=== PATIENT | female | born 1950 | race Caucasian/White ===

== ENCOUNTER 2017-02-28 17:54 | Emergency (ER) | payer OTHER, MEDICARE ==
--- NOTE | 2017-02-28 18:37 | EDPHY ---
H & P Time Seen by Provider: 02/28/17 18:11 HPI/ROS: CHIEF COMPLAINT: Sudden memory loss HISTORY OF PRESENT ILLNESS: Patient went to the eye doctor today at 11:00 a.m. and was with her daughter until 12:45 p.m. and was normal. At 3:30 a.m. the daughter spoke with the mother on the phone and she was confused with no good short-term memory. This persisted started getting better at around 4:30 p.m., and at the time I examine her she feels much better. This was not associated with vertigo or loss of balance or weakness or numbness in extremities or trouble with speech. REVIEW OF SYSTEMS: Eye: no change in vision ENT: no sore throat Cardiac: no chest pain or syncope Pulmonary: no cough or SOB Abdomen: no vomiting, diarrhea, abdominal pain. A little bit of nausea Musculoskeletal: no back pain or neck pain Skin: no rash Neuro: no headache Constitutional: no fever : no urinary symptoms, not incontinent A comprehensive 10 point review of systems is otherwise negative aside from elements mentioned in the history of present illness. PAST MEDICAL HISTORY: Eye surgery Social history: Here with her daughter, no alcohol General Appearance: Alert and conversant, cooperative. Eyes: No scleral icterus. ENT, Mouth: Normal mucous membranes. No tongue lac or abrasion. Respiratory: Normal respiratory effort, breath sounds equal, lungs are clear to auscultation. Cardiovascular: Regular rate and rhythm. Gastrointestinal: Abdomen is soft and non tender. Neurological: Alert and oriented x3. Normally conversant. Face symmetric, normal movement and sensation in all extremities. Negative Romberg. No pronator drift and normal [id number] bilaterally. Fluent speech. She knows her name and year and place of and her street address of the house she grew up in. Skin: Warm and dry, no rashes. Musculoskeletal: No peripheral edema and no joint swelling. Psychiatric: Not agitated. Emergency Department course/MDM: Probable transient global amnesia. Plan for CT, EKG, labs and Neurology consultation on the phone. Discussed with neurologist Dr. Camarillo recommends discharge with outpatient follow- up. 1942: CT per [facility] read as possible intraventricular hemorrhage near foramen of Garces, will consult Neurosurgery. 2016: CT personally reviewed by Dr. Alberts from Neurosurgery, his interpretation personally is that is not actually hemorrhage; patient would be stable for discharge then. Reviewed with the patient in the daughter. I think transient global ischemia is the most likely diagnosis. Smoking Status: Never smoked Constitutional: Initial Vital Signs Temperature (C) 36.7 C 02/28/17 17:55 Heart Rate 86 02/28/17 17:55 Respiratory Rate 16 02/28/17 17:55 Blood Pressure 130/89 H 02/28/17 17:55 O2 Sat (%) 96 02/28/17 17:55 O2 Delivery Mode Room Air Allergies/Adverse Reactions: Penicillins Allergy (Verified 02/28/17 17:58) as child Home Medications: Medication Instructions Recorded Estradiol [Estradiol 1 MG (*)] 1 mg PO 02/28/17 valACYclovir [Valtrex (*)] 500 mg PO 02/28/17 Medical Decision Making - Diagnostics EKG Interpretation: 12-lead EKG interpreted by me; official reading is in trace master. My interpretation is sinus rhythm rate 73 with late anterior RS transition and nonspecific inferior T-wave abnormalities. Imaging Results: Imaging Impressions Head CT 02/28/17 18:36 Impression: 1. Linear high attenuation in the region of the right foramen of Garces suggesting hemorrhage, without hydrocephalus. 2. Diffuse cerebral atrophy with periventricular and subcortical low attenuation consistent with chronic microvascular ischemic gliosis. Findings discussed with DIONICIO DAWSON 02/28/2017 at 19:39. Differential Diagnosis: Differential considered including but not limited to intracranial bleed or mass , ischemic stroke, transient global amnesia, seizure, metabolic. Consult/Admit Bed Type: [facility], [facility] 8 - Data Points Laboratory Results: Laboratory Results 02/28/17 18:35 02/28/17 18:35 02/28/17 02/28/17 18:35 18:35 WBC 6.29 10^3/uL 10^3/uL (3.80-9.50) RBC 4.49 10^6/uL 10^6/uL (4.18-5.33) Hgb 15.0 g/dL g/dL (12.6-16.3) Hct 44.3 % % (38.0-47.0) MCV 98.7 fL fL (81.5-99.8) MCH 33.4 pg pg (27.9-34.1) MCHC 33.9 g/dL g/dL (32.4-36.7) RDW 12.9 % % (11.5-15.2) Plt Count 228 10^3/uL 10^3/uL (150-400) MPV 10.7 fL fL (8.7-11.7) Neut % (Auto) 51.8 % % (39.3-74.2) Lymph % (Auto) 32.6 % % (15.0-45.0) Pettis % (Auto) 11.6 % % (4.5-13.0) Eos % (Auto) 2.2 % % (0.6-7.6) Baso % (Auto) 1.6 % % (0.3-1.7) Nucleat RBC Rel Count 0.0 % % (0.0-0.2) Absolute Neuts (auto) 3.26 10^3/uL 10^3/uL (1.70-6.50) Absolute Lymphs (auto) 2.05 10^3/uL 10^3/uL (1.00-3.00) Absolute Monos (auto) 0.73 10^3/uL 10^3/uL (0.30-0.80) Absolute Eos (auto) 0.14 10^3/uL 10^3/uL (0.03-0.40) Absolute Basos (auto) 0.10 10^3/uL 10^3/uL (0.02-0.10) Absolute Nucleated RBC 0.00 10^3/uL 10^3/uL (0-0.01) Immature Gran % 0.2 % % (0.0-1.1) Immature Gran # 0.01 10^3/uL 10^3/uL (0.00-0.10) Sodium 140 mEq/L mEq/L (134-144) Potassium 4.3 mEq/L mEq/L (3.5-5.2) Chloride 104 mEq/L mEq/L (97-110) Carbon Dioxide 23 mEq/l mEq/l (22-31) Anion Gap 13 mEq/L mEq/L (8-16) BUN 18 mg/dL mg/dL (7-23) Creatinine 0.7 mg/dL mg/dL (0.6-1.0) Estimated GFR > 60 Glucose 85 mg/dL mg/dL (70-100) Calcium 9.8 mg/dL mg/dL (8.5-10.4) Troponin I < 0.012 ng/mL ng/mL (0.000-0.034) Departure - Departure Disposition: Home, Routine, Self-Care Clinical Impression: Transient global amnesia Condition: Good Instructions: Transient Global Amnesia (ED) Referrals: Kelsi Mueller PA [Primary Care Provider] - As per Instructions Drew Camarillo MD [Medical Doctor] - As per Instructions (Please follow-up with Neurology next week.)
[2017-02-28 18:53] LABS: % IMMATURE GRANULYOCYTES 0.2 % (0.0-1.1); ABSOLUTE IMMATURE GRANULOCYTES 0.01 10^3/uL (0.00-0.10); ADD DIFF? NO; ADD MORPH? NO; ADD SCAN? NO; ATYPICAL LYMPHOCYTE FLAG 30 (0-99); FRAGMENT RBC FLAG 0 (0-99); HEMATOCRIT 44.3 % (38.0-47.0); LEFT SHIFT FLG 0 (0-99); LIPEMIA HEMOLYSIS FLAG 90 (0-99); MEAN CELL HEMOGLOBIN 33.4 pg (27.9-34.1); MEAN CELL HEMOGLOBIN CONCENTR. 33.9 g/dL (32.4-36.7); MEAN CELL VOLUME 98.7 fL (81.5-99.8); MEAN PLATELET VOLUME 10.7 fL (8.7-11.7); PLATELET CLUMPS FLAG 0 (0-99); PLATELET COUNT 228 10^3/uL (150-400); RED BLOOD CELL COUNT 4.49 10^6/uL (4.18-5.33); RED CELL DISTRIBUTION WIDTH 12.9 % (11.5-15.2)
--- NOTE | 2017-02-28 18:56 | CPEKG ---
Heart Rate: 73 RR Interval: 822 P-R Interval: 144 QRSD Interval: 78 QT Interval: 392 QTC Interval: 432 P [place]: 43 QRS [place]: -13 T Wave [place]: -3 EKG Severity - BORDERLINE ECG - EKG Impression: SINUS RHYTHM EKG Impression: BORDERLINE T ABNORMALITIES, INFERIOR LEADS Electronically Signed By: Willian Allison 28-Feb-2017 19:09:26
[2017-02-28 19:06] LABS: ANION GAP 13 mEq/L (8-16); CALCIUM 9.8 mg/dL (8.5-10.4); CARBON DIOXIDE 23 mEq/l (22-31); CHLORIDE 104 mEq/L (97-110); CREATININE 0.7 mg/dL (0.6-1.0); GLOMERULAR FILTRATION RATE > 60; GLUCOSE 85 mg/dL (70-100); POTASSIUM 4.3 mEq/L (3.5-5.2); SODIUM 140 mEq/L (134-144)
[2017-02-28 19:17] LABS: TROPONIN I < 0.012 ng/mL (0.000-0.034)
[2017-02-28 20:25] VITALS: BP 123/87; PULSE 71; RESP 18; TEMP 97.9; O2SAT 95
== END 2017-02-28 20:34 | disposition home or self-care (01) ==
DX: G45.4 Transient global amnesia (principal)

== ENCOUNTER → 2017-03-02 | Outpatient (CLI) | payer OTHER, MEDICARE | LOC: BMCIMAGING 12:51 | PROVIDERS: ATTEND Physician Assistant Medical | DX: G45.4 Transient global amnesia (principal) ==

== ENCOUNTER → 2017-03-28 | Outpatient (CLI) | payer OTHER, MEDICARE ==
--- NOTE | 2017-03-28 23:27 | CPEEG ---
[f rep st] ELECTROENCEPHALOGRAM EXTENDED GREATER THAN 1 HOUR EEG DATE OF STUDY: INTERPRETATION: This extended EEG is normal. There were no potentially epileptogenic abnormalities present during the awake or sleep recordings. REPORT: This extended EEG contains 9 Hz alpha activity of the posterior head regions. There was no abnormal activation at rest, during photic stimulation or hyperventilation. The patient became drowsy and fell into sustained sleep during the study. During drowsiness and light sleep, the patient had nonspecific activation of bitemporal wicket waves, maximal on left. These are of no clinical significance. There was no abnormal activation during drowsiness , sleep or during times of arousal. /[id number]/MODL MTDD
== END ==
LOC: FCPNEURO 12:57
PROVIDERS: ATTEND Psychiatry & Neurology Neurology
DX: R41.0 Disorientation, unspecified (principal)

== ENCOUNTER → 2017-04-03 | Outpatient (CLI) | payer OTHER, MEDICARE | LOC: FIMAGING 07:27 | PROVIDERS: ATTEND Physician Assistant Medical | DX: Z12.31 Encounter for screening mammogram for malignant neoplasm of breast (principal); Z80.3 Family history of malignant neoplasm of breast | CPT/HCPCS: G0202 ==

== ENCOUNTER → 2018-04-12 | Outpatient (CLI) | payer OTHER, MEDICARE | LOC: FIMAGING 08:19 | PROVIDERS: ATTEND Physician Assistant Medical | DX: Z12.31 Encounter for screening mammogram for malignant neoplasm of breast (principal); Z80.3 Family history of malignant neoplasm of breast; Z13.820 Encounter for screening for osteoporosis; M85.89 Other specified disorders of bone density and structure, multiple sites; Z78.0 Asymptomatic menopausal state ==